=== PATIENT | male | born 1975 | race Caucasian/White ===

== ENCOUNTER 2020-03-23 19:00 | Outpatient (REF) | payer OTHER, SELFPAY ==
--- NOTE | 2020-03-23 16:20 | SKI_PTH ---
PATIENT: Claude Rm LOC: [facility] U#:[id number] AGE/SX: 44/M ROOM: RE03/23/[address]: Mike Peters : 1975 BED: DIS: 03/23/2020 SPEC #: [id number] RECD: 03/24/20 12:45 STATUS: LEANNA REQ #: [id number] MORELIA: 03/23/20 16:[address]: Mike Peters DEPT: Surgical Specimen RECD BY: Ivy Lilly ENTERED: 03/24/20 12:46 SP TYPE: DUSTIN OTHR DR: Emilio Sanders Tissues: 1 - SKIN BIOPSY(SHAVE/PUNCH) Procedures: SKIN LEVEL 4 Comments: [id number]
[2020-03-23 21:54] LABS: Anion Gap 9.9 mmol/L (3-11); BUN 20 mg/dL (7-18); CO2 28.1 mmol/L (21.0-32.0); CREATININE 1.1 mg/dL (0.70-1.30); Calcium 9.7 mg/dL (8.5-10.1); Calculated LDL 124 mg/dL (<100); Chloride 102 mmol/L (98-107); Cholesterol 209 mg/dL (<200); Glucose 98 mg/dL (74-106); HDL Cholesterol 44 mg/dL (40-60); Potassium 3.9 mmol/L (3.5-5.1); Sodium 140 mmol/L (136-145); Triglyceride 206 mg/dL (<150)
[2020-03-23 22:03] LABS: Hemoglobin A1C 5.5 % (<5.7)
[2020-03-24 04:43] LABS: Vitamin D 25 Total 55.4 ng/ml (30-100)
== END 2020-03-23 19:01 | disposition home or self-care (01) ==
LOC: NCHCN 19:00
PROVIDERS: PCP Internal Medicine; Visit Provider Family Medicine
DX: Z00.00 Encounter for general adult medical examination without abnormal findings (principal); R03.0 Elevated blood-pressure reading, without diagnosis of hypertension; E55.9 Vitamin D deficiency, unspecified; E78.5 Hyperlipidemia, unspecified; D22.5 Melanocytic nevi of trunk
CPT/HCPCS: 80048; 80061; 82306; 83036; 88305

== ENCOUNTER 2021-07-03 10:26 | Outpatient (REF) | payer OTHER, SELFPAY ==
[2021-07-03 18:29] LABS: Calculated LDL 82 mg/dL (<100); Cholesterol 170 mg/dL (<200); HDL Cholesterol 44 mg/dL (40-60); Triglyceride 222 mg/dL (<150)
== END 2021-07-03 10:27 | disposition home or self-care (01) ==
LOC: NCHCN 10:26
PROVIDERS: PCP Internal Medicine; Visit Provider Family Medicine
DX: Z00.00 Encounter for general adult medical examination without abnormal findings (principal); I10 Essential (primary) hypertension; E78.5 Hyperlipidemia, unspecified
CPT/HCPCS: 80061; 82565

== ENCOUNTER 2022-11-05 16:11 | Outpatient (REF) | payer OTHER, SELFPAY ==
[2022-11-05 20:50] LABS: Anion Gap 10.5 mmol/L (3-11); BUN 20 mg/dL (7-18); CO2 26.5 mmol/L (21.0-32.0); Calcium 9.7 mg/dL (8.5-10.1); Chloride 101 mmol/L (98-107); Estimated GFR 94.59 (mL/min/1.73m2); Glucose 96 mg/dL (74-106); Potassium 4.3 mmol/L (3.5-5.1); Sodium 138 mmol/L (136-145)
[2022-11-07 10:41] LABS: Hepatitis C Ab w Rflx HCV PCR Negative (Negative)
== END 2022-11-05 16:12 | disposition home or self-care (01) ==
LOC: NCHCN 16:11
PROVIDERS: PCP Internal Medicine; Visit Provider Family Medicine
DX: Z00.00 Encounter for general adult medical examination without abnormal findings (principal); I10 Essential (primary) hypertension; Z11.59 Encounter for screening for other viral diseases
CPT/HCPCS: 80048; 86803

== ENCOUNTER 2023-05-06 06:07 | Day surgery (SDC) | payer OTHER, SELFPAY ==
--- NOTE | 2023-05-05 19:42 | W.SURGCON ---
Date of service: 05/06/23 Time of Service: 07:30 Assessment and Plan Assessment and plan (1) Colon cancer screening: Status: Acute Assessment and plan: 47 yo man without symptoms due for colon cancer screening. No increased risk factors. Plan: Colonoscopy History of Present Illness Narrative: Patient without symptoms for a screening colonscopy. No family history of colon cancer. No prior colonoscopy. PFSH All Active Problems (Updated 05/05/23 @ 19:58 by Elfego Trinidad MD) Colon cancer screening (Acute) Vitamin D deficiency (Acute) Hyperlipidemia (Acute) Anxiety disorder (Acute) Hypertension (Chronic) Family History (Updated 01/15/23 @ 09:25 by Clarisa Don RN, RN) Mother Alive and well Father , 52 [address] accident Myocardial infarction Coronary bypass grafting in his 50s Hyperlipidemia Heart disease Social History (Updated 02/10/23 @ 21:35 by ALAN Fisher) Smoking/Tobacco Use Status: Current every day Tobacco Type: cigarettes Smoking packs per day: 0.5 Smoking cigarettes per day: 10.0 Tobacco: How many years used: 20 Smoking risk assessment performed?: Yes Alcohol Intake: current Alcohol Intake frequency: 0-2 drinks per day Alcohol type: beer Drug use: Never Substance use type: does not use Household members: spouse and children Housing: house Education Level: college current occupation: [employer] in [place] Do you feel safe at home: Yes Additional Social history: unable to assess privately Exam Narrative Exam Narrative: Gen: Nontoxic, comfortable and interactive Neuro: AxOx3 Psych: Good mood and affect, good insight and understanding Chest: nonlabored breathing, no wheezing Heart: Regular rate and rhythm
--- NOTE | 2023-05-05 19:59 | W.PM.DSUDISC ---
Date of service: 05/06/23 Time of Service: 08:00 Discharge Plan Disposition Patient Disposition: Home Condition: Good Discharge Details Attending Provider: Elfego Trinidad Primary Care Provider: Mike Peters Home Meds and New Rx's Prescriptions: No Action bisacodyl [Dulcolax (bisacodyl)] 5 mg tablet,delayed release (DR/EC) 5 mg PO ONCE Qty: 4 0RF Rx Instructions: Take per colonoscopy instructions provided by ordering providers office polyethylene glycol 3350 17 gram/dose powder 17 g PO ONCE Qty: 238 0RF Rx Instructions: Take per colonoscopy instructions provided by ordering providers office sertraline 100 mg tablet 100 mg PO DAILY amlodipine 5 mg tablet 5 mg PO DAILY atorvastatin 40 mg tablet 40 mg PO QHS cholecalciferol (vitamin D3) 50 mcg (2,000 unit) capsule 50 mcg PO DAILY Discharge Instructions Additional Instructions: FINDINGS: No polyps or cancer was found. Everything looks healthy. Repeat another colonoscopy in 10 years. Stand Alone Forms: Colonoscopy Post Instructions Activity:: Activity as Tolerated Diet:: As Tolerated DS: Diagnosis Discharge Diagnosis (1) Colon cancer screening: Status: Acute
--- NOTE | 2023-05-06 06:18 | W.ANESPRE ---
General Info Date of Service Date Performed: 05/06/23 Height: 5 ft 8 in Weight: 87.543 kg Body Mass Index (BMI): 29.3 Surgical Procedure: Operation Date: 05/06/23 07:35 Proposed Procedure Side Surgeon p Rosa Trinidad MD Meds Allergies and Home Medications Allergies Allergy/AdvReac Type Severity Reaction Status Date / Time No Known Allergies Allergy Verified 05/06/23 06:35 Home Medication Medication Instructions Recorded amlodipine 5 mg tablet 5 mg PO DAILY 01/15/23 atorvastatin 40 mg tablet 40 mg PO QHS 01/15/23 cholecalciferol (vitamin D3) 50 50 mcg PO DAILY 01/15/23 mcg (2,000 unit) capsule sertraline 100 mg tablet 100 mg PO DAILY 01/15/23 bisacodyl 5 mg tablet,delayed 5 mg PO ONCE #4 tabs 02/07/23 release (Dulcolax (bisacodyl)) polyethylene glycol 3350 17 17 g PO ONCE #238 grams 02/07/23 gram/dose oral powder Current Visit Medications: Current Medications Generic Name Dose Route Start Last Admin Trade Name Freq PRN Reason Stop Dose Admin Ringer's Solution 1,000 mls @ 80 mls/hr 05/06/23 06:00 IV 06/02/23 23:59 INFUSION ROEL IV Miscellaneous Supplies 1 each 05/06/23 06:00 Iv Access IV 06/02/23 23:59 DIRECTED ROEL Sodium Chloride 0 ml 05/06/23 06:00 Normal Saline Flush 10 Ml Syr IV 06/02/23 23:59 PRN PRN Sodium Chloride 0 ml 05/06/23 06:00 Normal Saline 10 Ml Vial IJ 06/02/23 23:59 DIRECTED PRN Sterile Water 0 ml 05/06/23 06:00 Water,Injection,Sterile 10 Ml Vial IJ 06/02/23 23:59 DIRECTED PRN PFSH Active Problems Active Problems: Problem Status Onset Code Colon cancer screening Z12.11 Vitamin D deficiency E55.9 Hyperlipidemia E78.5 Anxiety disorder F41.9 Hypertension I10 Tobacco Smoking/Tobacco Use Status: Current every day Tobacco Type: cigarettes Smoking packs per day: 0.5 Smoking cigarettes per day: 10.0 Alcohol Alcohol Intake: current Alcohol intake frequency: 0-2 drinks per day Alcohol type: beer Substance Use Substance use: Never Substance use type: does not use Vital Signs and Lab Results Vital Signs Most Recent Vital Signs in EMR: Temp Pulse Resp BP Pulse Ox 36.7 C 75 16 121/80 96 05/06/23 06:25 05/06/23 06:25 05/06/23 06:25 05/06/23 06:25 05/06/23 06:25 Lab Results Blood Type / Crossmatch: No Data to Display Complete Blood Count: No Data to Display Complete Metabolic Panel: No Data to Display Liver Function Panel: No Data to Display Coagulation Panel: No Data to Display Cardiac Panel: No Data to Display Arterial Blood Gas: No Data to Display Venous Blood Gas: No Data to Display Pancreas Panel: No Data to Display Thyroid Panel: No Data to Display Infectious Disease: No Data to Display Blood Cultures: No Data to Display Toxicology Panel: No Data to Display Anesthesia Assessment and Plan Anesthesia History Personal History: No History of Anesthesia Complications Family History: No Family History of Anesthesia Complications Exercise Tolerance Exercise Tolerance: Metabolic Equivalents>4 Cardiac & Pulmonary Exam Cardiac Exam: Normal S1/S2 Heart Sounds Pulmonary Exam: Clear Bilateral Breath Sounds Implantable Cardiac Device Does patient have a Pacemaker or an ICD?: No Airway Exam Known Difficult Airway: No Mallampati Class: 2 Mouth Opening: Normal (> 3cm) Thyromental Distance: Greater than 3 cm Neck Range of Motion: Full ROM Neck Circumference: Normal Teeth Condition: Normal Dentition ASA Classification ASA Score: ASA 2 Emergency Case?: No NPO Status NPO Status: NPO Clears >2 hours, Solids >8 hours Anesthesia Plan Resuscitation Status: Full Code Anesthesia Technique: General Anesthesia Airway Planned: Natural Airway Monitors Used: Standard Monitors Preoperative Comments:: 47 yo male for colo. Sig PMHx: HTN (amlodipine), anxiety. smoker, occ EtOH.
[2023-05-06 06:25] VITALS: BP 121/80; PULSE 75; RESP 16; TEMP 36.7; O2SAT 96
[2023-05-06] MEDS: Lactated Ringers 1,000 ML 80 ML IV (06:50)
[2023-05-06 07:22] VITALS: BMI 29.3
[2023-05-06 08:02] VITALS: BP 106/71; PULSE 69; RESP 16; TEMP 36.3; O2SAT 97
--- NOTE | 2023-05-06 08:13 | W.COLOREPORT ---
Date of service: 05/06/23 Time of Service: 08:14 Colonoscopy Report Procedure Description: PROCEDURES PERFORMED: 1. Colonoscopy PREOPERATIVE DIAGNOSIS: Screening colonoscopy POSTOPERATIVE DIAGNOSIS: Normal colon, normal rectum SURGEON: Sidra Trinidad MD INDICATION FOR PROCEDURE: the patient is a 47-year-old man with no family history of colon cancer and no symptoms due for his for screening colonoscopy. FINDINGS: Normal terminal ileum. No polyps. No inflammation. No hemorrhoid disease. No obvious diverticular disease. SURVEILLANCE interval/FOLLOW-UP: 10 years SPECIMENS: None EBL: Minimal COMPLICATIONS: None QUALITY of prep: Excellent Procedure in detail: The patient gave written consent and was in agreement with the indications, the potential risks as well as the benefits of the procedure. They were taken to the endoscopy suite and laid in the left lateral decubitus position. A timeout was performed and anesthesia was administered which was tolerated well. I started the procedure. Digital rectal and visual examination was performed and grossly within normal limits. A well-lubricated flexible colonoscope was then introduced and passed without any notable difficulty all the way to the cecum identified by the ileocecal valve and the appendiceal orifice. The terminal ileum was intubated and looked normal. The scope was then slowly withdrawn with the above-noted findings. The patient tolerated the procedure well and was taken to the PACU in hemodynamically stable condition.
--- NOTE | 2023-05-06 08:15 | W.ANESPOSTOP ---
Postoperative Evaluation Date, Time and Location Date Performed: 05/06/23 Time Performed: 08:15 Patient Location: Day Surgery Unit Vital Signs Most Recent Imported Vital Signs: Most Recent Vital Signs Temp Pulse Resp BP Pulse Ox 36.3 C L 69 16 106/71 97 05/06/23 08:02 05/06/23 08:02 05/06/23 08:02 05/06/23 08:02 05/06/23 08:02 Pain Score Most Recent Pain Score: Most Recent Pain Score Pain Level 0 05/06/23 08:02 Assessment Mental Status: Awake (Alert & Oriented to Patient Baseline) Airway and Respiratory Function: Patent airway with normal (patient baseline) respiratory exam Cardiovascular Function: Hemodynamically Stable Hydration Status: Adequately Hydrated Nausea & Vomiting: No Nausea or Vomiting Pain: Pt. Denies Any Pain Peripheral Nerve Block: Patient did not receive a nerve block
[2023-05-06 08:23] VITALS: BP 108/77; PULSE 64; RESP 16; TEMP 36.2; O2SAT 98
== END 2023-05-06 08:48 | disposition home or self-care (01) ==
LOC: SUR 06:07
PROVIDERS: PCP Family Medicine; Visit Provider Student in an Organized Health Care Education/Training Program
PROC: 0DJD8ZZ Inspection of Lower Intestinal Tract, Via Natural or Artificial Opening Endoscopic (ICD-10-PCS; CPT 45378; principal; 2023-05-06 07:30)
DX: Z12.11 Encounter for screening for malignant neoplasm of colon (principal); I10 Essential (primary) hypertension; F41.9 Anxiety disorder, unspecified; F10.90 Alcohol use, unspecified, uncomplicated; F17.200 Nicotine dependence, unspecified, uncomplicated
CPT/HCPCS: 45378; 00123; J2001; J2704

== ENCOUNTER 2024-05-15 12:59 | Outpatient (REF) | payer OTHER, SELFPAY ==
[2024-05-15 15:46] LABS: Anion Gap 8.5 mmol/L (3-11); BUN 17 mg/dL (7-18); CO2 29.5 mmol/L (21.0-32.0); CREATININE 0.9 mg/dL (0.70-1.30); Calcium 9.8 mg/dL (8.5-10.1); Calculated LDL 98 mg/dL (<100); Chloride 105 mmol/L (98-107); Cholesterol 169 mg/dL (<200); Estimated GFR 106.67 (mL/min/1.73m2); Glucose 94 mg/dL (74-106); HDL Cholesterol 53 mg/dL (>or=40); Potassium 4.7 mmol/L (3.5-5.1); Sodium 143 mmol/L (136-145); Triglyceride 92 mg/dL (<150)
== END 2024-05-15 13:00 | disposition home or self-care (01) ==
LOC: NCHCN 12:59
PROVIDERS: PCP Student in an Organized Health Care Education/Training Program; Visit Provider Student in an Organized Health Care Education/Training Program
DX: I10 Essential (primary) hypertension (principal); E78.5 Hyperlipidemia, unspecified
CPT/HCPCS: 80048; 80061